=== PATIENT | female | born 2000 | race Two or more races ===

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

== ENCOUNTER 2023-11-28 08:11 | Emergency (ER) | payer MEDICAID ==
[~2023-11-28] VITALS: Ht 165.1 cm; Wt 91.0 kg
[~2023-11-28 08:11] MED LIST changes: +CLIN-194 MT; -CLIN300C12 MT; +IBUP-2029 MT
[2023-11-28 08:33] VITALS: O2SAT 99
[2023-11-28] MEDS ORDERED: CLINDAMYCIN HCL 150MG CAPSULE PO STA (08:44)
[2023-11-28] MEDS ORDERED: IBUPROFEN 800MG TABLET PO ONE (08:45)
[2023-11-28] MEDS ORDERED: DEXAMETHASONE 4MG/ML 1ML VIAL IM ONE (08:45)
[2023-11-28] MEDS ORDERED: IBUP-2030 MT (08:46)
[2023-11-28] MEDS ORDERED: CLIN-194 MT (08:46)
[2023-11-28] MEDS ORDERED: IBUPROFEN 400MG TABLET PO NR (08:49)
[2023-11-28 09:52] VITALS: BP 119/60; PULSE 102; RESP 16; TEMP 98.4
== END 2023-11-28 09:53 | disposition home or self-care (01) ==
LOC: ER 08:15
DX: L02.411 Cutaneous abscess of right axilla (principal); Z79.899 Other long term (current) drug therapy
CPT/HCPCS: 99283; 96372; J1100

== ENCOUNTER 2023-12-23 18:11 | Emergency (ER) | payer MEDICAID ==
[~2023-12-23] VITALS: Ht 162.6 cm; Wt 81.0 kg
[~2023-12-23 18:11] MED LIST changes: +IBUP-2030 MT
[2023-12-23 18:19] VITALS: BP 135/80; TEMP 97.9; O2SAT 100
[2023-12-23 18:20] VITALS: PULSE 92; RESP 16
[2023-12-23 18:55] LABS: BASOPHILS % 0.2 % (0.0-2.0); EOSINOPHILS % 0.7 % (0.0-5.0); HEMOGLOBIN. 11.8 g/dL (12.0-16.0); LYMPHOCYTES % 37.2 % (20.0-50.0); MEAN CORPUSCULAR HEMOGLOBIN 28.9 pg (28.0-32.0); MEAN CORPUSCULAR HGB CONC 33.6 g/dL (31.0-37.0); MEAN PLATELET VOLUME 7.7 fl (7.4-10.4); NEUTROPHILS % 54.9 % (40.0-76.0); PLATELET 326 x1000/uL (130-400); RED BLOOD CELL COUNT 4.07 mill/uL (4.2-5.4); RED CELL DISTRIBUTION WIDTH 14.5 % (11.6-14.6); WHITE BLOOD COUNT 6.7 x1000/uL (4.5-11.0)
[2023-12-23 19:03] LABS: ALANINE AMINOTRANSFERASE 20 IU/L (10-49); ALBUMIN 4.8 g/dL (3.2-4.8); ASPARTATE AMINOTRANSFERASE 17 IU/L (<34); BILIRUBIN TOTAL 0.3 mg/dL (0.1-1.0); CALCIUM 9.3 mg/dL (8.7-10.4); CARBON DIOXIDE 25 mEq/L (21-32); CHLORIDE 107 mEq/L (98-107); CREATININE 0.6 mg/dL (0.6-1.0); GLUCOSE 93 mg/dL (70-105); POTASSIUM 3.5 mEq/L (3.5-5.1); SODIUM 140 mEq/L (136-145); UREA NITROGEN BLOOD 10 mg/dL (9-23)
[2023-12-23 19:06] LABS: TROPONIN I HIGH SENSITIVITY < 4 ng/L (3.0-34)
[2023-12-23 19:49] LABS: HCG SCREEN NEGATIVE
== END 2023-12-23 20:05 | disposition home or self-care (01) ==
LOC: ER 18:26
DX: F43.9 Reaction to severe stress, unspecified (principal); F41.9 Anxiety disorder, unspecified; Z79.899 Other long term (current) drug therapy
CPT/HCPCS: 36415; 71045; 80053; 84484; 84703; 85025; 93005; 99285

== ENCOUNTER 2024-08-31 10:39 | Emergency (ER) | payer MEDICAID ==
[~2024-08-31] VITALS: Ht 160 cm; Wt 94.8 kg
[2024-08-31 10:47] VITALS: BP 132/78; PULSE 84; RESP 16; TEMP 98.3; O2SAT 100
[2024-08-31 12:02] LABS: CLARITY URINE CLOUDY (CLEAR); COLOR URINE YELLOW (YELLOW); GLUCOSE URINE NEGATIVE (NEGATIVE); KETONES URINE NEGATIVE (NEGATIVE); LEUKOCYTE ESTERASE URINE 2+ (NEGATIVE); NITRITE URINE NEGATIVE (NEGATIVE); OCCULT BLOOD URINE NEGATIVE (NEGATIVE); PH URINE 5.5 (4.5-8.0); PROTEIN URINE NEGATIVE (NEGATIVE); SPECIFIC GRAVITY URINE 1.015 (1.005-1.030); UROBILINOGEN URINE 0.2 E.U./dL (0.2-1.0)
[2024-08-31 12:05] LABS: BASOPHILS % 0.3 % (0.0-2.0); EOSINOPHILS % 0.5 % (0.0-5.0); HEMATOCRIT. 37.8 % (36.0-48.0); HEMOGLOBIN. 12.2 g/dL (12.0-16.0); LYMPHOCYTES % 40.3 % (20.0-50.0); MEAN CORPUSCULAR HEMOGLOBIN 28.9 pg (28.0-32.0); MEAN CORPUSCULAR HGB CONC 32.3 g/dL (31.0-37.0); MEAN CORPUSCULAR VOLUME 89.6 fL (81.0-99.0); MONOCYTES % 8.4 % (2.0-8.0); NEUTROPHILS % 50.5 % (40.0-76.0); PLATELET 320 x1000/uL (130-400); RED BLOOD CELL COUNT 4.22 mill/uL (4.2-5.4); RED CELL DISTRIBUTION WIDTH 14.4 % (11.6-14.6); WHITE BLOOD COUNT 5.8 x1000/uL (4.5-11.0)
[2024-08-31 12:38] LABS: CHLORIDE 107 mEq/L (98-107); POTASSIUM 4.1 mEq/L (3.5-5.1); SODIUM 140 mEq/L (136-145)
[2024-08-31 12:39] LABS: CARBON DIOXIDE 26 mEq/L (21-32)
[2024-08-31 12:44] LABS: CREATININE 0.7 mg/dL (0.6-1.0); GLUCOSE 97 mg/dL (70-105); UREA NITROGEN BLOOD 7 mg/dL (9-23)
[2024-08-31 12:50] LABS: BACTERIA URINE 3+; RBC URINE 0-2 /hpf (0-2); SQUAMOUS EPITHELIAL CELL URINE 3+ /lpf (RARE/1+); YEAST URINE NONE SEEN
== END 2024-08-31 14:16 | disposition home or self-care (01) ==
LOC: ER 10:39
DX: R03.0 Elevated blood-pressure reading, without diagnosis of hypertension (principal); F41.9 Anxiety disorder, unspecified; Z79.899 Other long term (current) drug therapy
CPT/HCPCS: 36415; 80048; 81003; 81025; 85025; 93005; 99284

== ENCOUNTER 2025-01-16 18:26 | Emergency (ER) | payer MEDICAID ==
[~2025-01-16] VITALS: Ht 160 cm; Wt 91.0 kg
[2025-01-16 18:27] VITALS: O2SAT 98
[2025-01-16 18:36] VITALS: BP 121/52; PULSE 91; RESP 16; TEMP 37.1; O2SAT 98
[2025-01-16 20:08] LABS: HCG SCREEN NEGATIVE
== END 2025-01-16 20:00 | disposition home or self-care (01) ==
LOC: ER 18:26
DX: R05.9 Cough, unspecified (principal); F41.9 Anxiety disorder, unspecified; Z79.899 Other long term (current) drug therapy
CPT/HCPCS: 71045; 81025; 84703; 99284

== ENCOUNTER 2025-09-23 16:36 | Emergency (ER) | payer SELFPAY ==
[~2025-09-23] VITALS: Ht 160 cm; Wt 91.0 kg
[~2025-09-23 16:36] MED LIST changes: +IBUP-1455 MT; +IBUP-1455 PO; -IBUP-2029 MT; -IBUP-2029 PO
[2025-09-23 17:14] VITALS: O2SAT 100
[2025-09-23 19:49] LABS: CLARITY URINE CLOUDY (CLEAR); COLOR URINE YELLOW (YELLOW); GLUCOSE URINE NEGATIVE (NEGATIVE); KETONES URINE NEGATIVE (NEGATIVE); PH URINE 5.5 (4.5-8.0); PROTEIN URINE 1+ (NEGATIVE); SPECIFIC GRAVITY URINE 1.022 (1.005-1.030)
[2025-09-23 19:50] LABS: LEUKOCYTE ESTERASE URINE 1+ (NEGATIVE); NITRITE URINE NEGATIVE (NEGATIVE); OCCULT BLOOD URINE 1+ (NEGATIVE); UROBILINOGEN URINE 0.2 E.U./dL (0.2-1.0)
[2025-09-23 20:44] LABS: BACTERIA URINE 4+; SQUAMOUS EPITHELIAL CELL URINE 1+ /lpf (RARE/1+)
[2025-09-23] MEDS ORDERED: CEFP200T14 MT (20:52)
[2025-09-23] MEDS ORDERED: PHEN-815 MT (20:52)
[2025-09-23] MEDS: KETOROLAC 30MG/ML VIAL IM ONE (21:14)
[2025-09-23 21:19] VITALS: BP 122/72; PULSE 90; RESP 14; TEMP 36.9; O2SAT 100
== END 2025-09-23 21:22 | disposition home or self-care (01) ==
LOC: ER 16:36
DX: N39.0 Urinary tract infection, site not specified (principal); D64.9 Anemia, unspecified; F41.9 Anxiety disorder, unspecified; Z79.899 Other long term (current) drug therapy
CPT/HCPCS: 99283; 81003; 81025; 96372; J1885